=== PATIENT | female | born 1995 | race Caucasian/White ===

== ENCOUNTER 2016-11-28 22:18 | Emergency (ER) | payer OTHER ==
[~2016-11-28] VITALS: Ht 160 cm; Wt 64.0 kg
[2016-11-28 22:30] VITALS: Ht 160 cm; Wt 64.0 kg
[2016-11-28] MEDS ORDERED: BENZ100C70 PO (23:58)
[2016-11-28] MEDS ORDERED: ACET500C5 PO (23:58)
[2016-11-28] MEDS ORDERED: SODI30SP2 NS (23:58)
--- NOTE | 2016-11-29 00:25 | ERD ---
ER Documentation Chief Complaint Date/Time DATE: 11/29/16 TIME: 00:20 Chief Complaint epistaxis 1 hour ago HPI 21-year-old female with no significant past medical history presents the ED complaining of a dry cough that started 3 days ago. States that she also had nosebleed that occurred earlier today in the shower. States that she had told her house for 45 minutes but the bleeding stopped. Reports that her nose feels dry. Denies nasal trauma. Denies any abdominal pain, nausea, vomiting, diarrhea , chest pain, shortness of breath, wheezing. States that she has been taking NyQuil with slight relief of her symptoms. Denies any head trauma. Denies any headache, weakness, numbness or tingling, painting. Denies any history of bleeding disorders. Denies any easy bruisability, gum bleeding. Denies history of anemia. ROS All systems reviewed and are negative except as per history of present illness. Medications Home Meds Active Scripts Acetaminophen* (Tylophen*) 500 Mg Capsule, 1 CAP PO Q6H Y for PAIN AND OR ELEVATED TEMP, #20 CAP Prov:BRICE MERRITT PA-C 11/28/16 Benzonatate* (Tessalon Perle*) 100 Mg Capsule, 100 MG PO Q8H Y for COUGH, #20 CAP Prov:BRICE MERRITT PA-C 11/28/16 Sodium Chloride (Saline Nasal [place]) 30 Ml [place], 30 ML NS Q4, #1 SPRAY Prov:BRICE MERRITT PA-C 11/28/16 Allergies Allergies: Coded Allergies: No Known Allergy (Unverified , 07/07/12) PMhx/Soc History of Surgery: No Anesthesia Reaction: No Hx Neurological Disorder: No Hx Respiratory Disorders: No Hx Cardiac Disorders: No Hx Psychiatric Problems: No Hx Miscellaneous Medical Probl: No (NO MEDICAL OR SURGICAL HISTORY) Hx Alcohol Use: No Hx Substance Use: No Hx Tobacco Use: No Smoking Status: Never smoker Physical Exam Vitals Vital Signs Date Time Temp Pulse Resp B/P Pulse Ox O2 Delivery O2 Flow Rate FiO2 11/28/16 22:30 97.8 88 20 138/73 99 Physical Exam Const: [id number], well-nourished. In no acute distress. Head: Atraumatic, normocephalic Eyes: Normal Conjunctiva without injection. No purulent discharge. PERRL. EOMI ENT: Normal external ear. Ear canal without erythema. Tympanic membrane pearly bose without effusion or bulging. Nasal canal with normal turbinates and anterior bilateral dry blood noted in nares noted. Moist oropharynx without tonsillar exudates. Non-erythematous pharynx. Uvula midline. No drooling. No trismus. Neck: Full range of motion. No meningismus. No cervical lymphadenopathy. Resp: Clear to auscultation bilaterally. No wheezing, rhonchi, rales, or crackles. No accessory muscle use. No retractions. Cardio: Regular rate and rhythm. No murmurs, rubs or gallops. Abd: Soft, non tender, non distended. Normal bowel sounds. No palpable masses. No rebound tenderness. No guarding. Skin: No petechiae or rashes Back: No midline tenderness. No CVA tenderness. Ext: No cyanosis, or edema. Neur: Awake and alert. Psych: Normal Mood and Affect Procedures/MDM This is a 21-year-old female with no significant past medical history presents to the ED complaining epistaxis that started earlier today, dry cough that started 3 days ago. Patient is afebrile and nontoxic-appearing. Patient has normal vital signs. Patient states that her nose feels dry, therefore epistaxis could be secondary to this. This patient presents to the ED with symptoms consistent with a viral acute upper respiratory infection. Patient is afebrile and has normal vital signs. Patient's physical exam include lungs which were clear to auscultation and a normal pulse oximetry. There is a low suspicion for pneumonia, pneumothorax, pulmonary embolism, epiglottitis, otitis media, otitis externa, viral/strep pharyngitis, sinusitis, peritonsillar abscess , mastoiditis, retropharyngeal abscess, meningitis, sepsis, acute abdomen or other emergent conditions. Fluids, rest, and symptomatic treatment are recommended for the management of patient's symptoms. Discharge medications: Tessalon Perles, Nasal saline spray, Tylenol Patient was instructed to return to the ED for any new or worsening symptoms. They should otherwise follow up with the primary care provider within 1-2 days. The patient's questions were answered at the time of discharge. Patient understood and agreed with discharge management. Departure Diagnosis: Primary Impression: Upper respiratory infection URI type: unspecified URI Qualified Code: J06.9 - Upper respiratory tract infection, unspecified type Additional Impression: Epistaxis Condition: Stable Patient Instructions: Epistaxis (Adult), Uri, Viral, No Abx (Child) Referrals: [facility] YOU HAVE RECEIVED A MEDICAL SCREENING EXAM AND THE RESULTS INDICATE THAT YOU DO NOT HAVE A CONDITION THAT REQUIRES URGENT TREATMENT IN THE EMERGENCY DEPARTMENT. FURTHER EVALUATION AND TREATMENT OF YOUR CONDITION CAN WAIT UNTIL YOU ARE SEEN IN YOUR DOCTORS OFFICE WITHIN THE NEXT 1-2 DAYS. IT IS YOUR RESPONSIBILITY TO MAKE AN APPOINTMENT FOR FOLOW-UP CARE. IF YOU HAVE A PRIMARY DOCTOR --you should call your primary doctor and schedule an appointment IF YOU DO NOT HAVE A PRIMARY DOCTOR YOU CAN CALL OUR PHYSICIAN REFERRAL HOTLINE AT IF YOU CAN NOT AFFORD TO SEE A PHYSICIAN YOU CAN CHOSE FROM THE FOLLOWING [facility] [address] [facility] [address] [facility] [facility] [address] [facility] [address] [facility] [address] [facility] [address] [facility] [facility] YOU HAVE RECEIVED A MEDICAL SCREENING EXAM AND THE RESULTS INDICATE THAT YOU DO NOT HAVE A CONDITION THAT REQUIRES URGENT TREATMENT IN THE EMERGENCY DEPARTMENT. FURTHER EVALUATION AND TREATMENT OF YOUR CONDITION CAN WAIT UNTIL YOU ARE SEEN IN YOUR DOCTORS OFFICE WITHIN THE NEXT 1-2 DAYS. IT IS YOUR RESPONSIBILITY TO MAKE AN APPOINTMENT FOR FOLOW-UP CARE. IF YOU HAVE A PRIMARY DOCTOR --you should call your primary doctor and schedule and appointment IF YOU DO NOT HAVE A PRIMARY DOCTOR YOU CAN CALL OUR PHYSICIAN REFERRAL HOTLINE AT . IF YOU CAN NOT AFFORD TO SEE A PHYSICIAN YOU CAN CHOSE FROM THE FOLLOWING [facility] INSTITUTIONS: [facility] [id number] [place] [address] [facility] [address] [place] [address] [facility] + [address] [address] [facility] Additional Instructions: FOLLOW UP WITH YOUR PRIMARY CARE PHYSICIAN TOMORROW. Return to this facility if you are not improving as expected. BRICE MERRITT PA-C Nov 29, 2016 00:25
== END 2016-11-29 00:13 | disposition home or self-care (01) ==
LOC: FTE 22:18
DX: J06.9 Acute upper respiratory infection, unspecified (principal); R04.0 Epistaxis
CPT/HCPCS: 99283